=== PATIENT | female | born 1980 | race Caucasian/White ===

== ENCOUNTER 2018-03-30 15:58 | Emergency (ER) | payer MEDICAID, OTHER ==
[~2018-03-30] VITALS: Ht 170.2 cm; Wt 77.1 kg
[~2018-03-30 15:58] MED LIST: NITR-48; PRENCAP15
[2018-03-30 17:09] VITALS: BP 112/73
[2018-03-30] MEDS ORDERED: TETANUS-DIPTH-ACEL PERTUSSIS 0.5ML SYRG IM ONE (17:30)
== END 2018-03-30 17:44 | disposition home or self-care (01) ==
LOC: ER 16:03
DX: S81.841A Puncture wound with foreign body, right lower leg, initial encounter (principal); Z79.899 Other long term (current) drug therapy; Z98.51 Tubal ligation status; Y92.89 Other specified places as the place of occurrence of the external cause
CPT/HCPCS: 90471; 90715

== ENCOUNTER 2019-03-25 15:50 | Emergency (ER) | payer MEDICAID ==
[~2019-03-25] VITALS: Ht 167.6 cm; Wt 81.6 kg
[~2019-03-25 15:50] MED LIST changes: -NITR-48; +NITR100C44
[2019-03-25 16:39] LABS: Basophils # (auto) 0.1 uL; Basophils % (auto) 1.1 % (0.0-2.0); Eosinophils # (auto) 0.1 uL; Eosinophils % (auto) 1.9 % (0.0-7.0); Hematocrit 40.5 % (36.0-46.0); Hemoglobin 13.7 g/dL (12.2-16.2); Lymphocytes # (auto) 2.1 uL; Lymphocytes % (auto) 30.5 % (10.0-50.0); Mean Corpuscular Hemoglobin 31.2 pg (28.0-32.0); Mean Corpuscular Hgb Conc. 33.8 g/dL (32.0-36.0); Mean Corpuscular Volume 92.4 fL (80.0-100.0); Monocytes # (auto) 0.6 uL; Monocytes % (auto) 8.9 % (0.0-12.0); Neutrophils % (auto) 57.6 % (37.0-80.0); Nucleated Red Blood Cells % 0.1 %; Platelet Count (auto) 287 10^3/uL (140-450); Red Blood Cells 4.38 10^6/uL (4.0-5.20); Red Cell Distribution Width 13.2 % (11.8-14.3); White Blood Cell 6.9 10^3/uL (4.4-10.8)
[2019-03-25 16:50] LABS: Albumin 3.8 g/dL (3.4-5.0); BUN/Creatinine Ratio 15.7; Calcium 8.3 mg/dL (8.5-10.1); Potassium 3.7 mmol/L (3.5-5.1)
[2019-03-25 16:52] LABS: Bilirubin, Total 0.5 mg/dL (0.2-1.0); Total Protein 7.5 g/dL (6.4-8.2)
[2019-03-25 16:59] LABS: Urine Bacteria FEW /hpf (None Seen); Urine Blood Negative /uL (Negative); Urine Mucus FEW (None Seen); Urine Specific Gravity 1.027 (1.001-1.035); Urine WBC 1 /hpf (0 - 5)
[2019-03-25 19:21] VITALS: BP 128/81
== END 2019-03-25 19:25 | disposition home or self-care (01) ==
LOC: ER 15:53
DX: R42 Dizziness and giddiness (principal); R51 Headache; R11.2 Nausea with vomiting, unspecified; Z98.51 Tubal ligation status
CPT/HCPCS: 36415; 70450; 71046; 80053; 81001; 81025; 85025

== ENCOUNTER 2022-02-01 06:13 | Inpatient (IN) | payer MEDICAID ==
[2022-01-30 09:22] LABS: Basophils # (auto) 0.1 10 ^3/uL (0-0.2); Eosinophils # (auto) 0.1 10 ^3/uL (0-0.8); Eosinophils % (auto) 2.2 % (0.0-7.0); Hematocrit 38.7 % (36.0-46.0); Hemoglobin 13.2 g/dL (12.2-16.2); Lymphocytes # (auto) 1.6 10 ^3/uL (0.4-5.4); Mean Corpuscular Hemoglobin 30.9 pg (28.0-32.0); Mean Corpuscular Hgb Conc. 34.1 g/dL (32.0-36.0); Mean Corpuscular Volume 90.4 fL (80.0-100.0); Monocytes # (auto) 0.4 10 ^3/uL (0-1.3); Monocytes % (auto) 8.1 % (0.0-12.0); Neutrophils # (auto) 3.2 10 ^3/uL (1.6-8.6); Neutrophils % (auto) 58.7 % (37.0-80.0); Red Blood Cells 4.28 10^6/uL (4.0-5.20); Red Cell Distribution Width 13.4 % (11.8-14.3); White Blood Cell 5.4 10^3/uL (4.4-10.8)
[2022-01-30 09:41] LABS: Urine Bacteria FEW /hpf (None Seen); Urine Blood Negative /uL (Negative); Urine Specific Gravity 1.015 (1.001-1.035); Urine WBC 1 /hpf (0 - 5)
[2022-01-30 09:43] LABS: Albumin 3.7 g/dL (3.4-5.0); Potassium 3.9 mmol/L (3.5-5.1)
[2022-01-30 09:46] LABS: BUN/Creatinine Ratio 16.9; Bilirubin, Total 0.4 mg/dL (0.2-1.0); Total Protein 7.3 g/dL (6.4-8.2)
[2022-01-30 10:02] LABS: Partial Thromboplastin Time 26.9 sec (23.6-33.0)
[~2022-02-01] VITALS: Ht 170.2 cm; Wt 96.7 kg
[2022-02-01] MEDS ORDERED: ceFAZolin 1GM/50ML 100 ML IV ONE (06:37)
[2022-02-01] MEDS ORDERED: SUCCINYLCHOLINE CHLORIDE 20 MG/ML 10ML VIAL IV ONE (06:48)
[2022-02-01] MEDS ORDERED: ROCURONIUM 10MG/ML 10ML VIAL IV ONE (06:48)
[2022-02-01] MEDS ORDERED: NEOSTIGMINE 1 MG/ML INJ (10mg/10ML VIAL) ONE (07:06)
[2022-02-01] MEDS ORDERED: DexAMETHasone SOD PHOS 10MG/1ML VIAL INJ ONE (07:06)
[2022-02-01] MEDS ORDERED: MIDAZOLAM HCL 2MG/2ML 2ml VIAL (1mg/ml) ONE (07:06)
[2022-02-01] MEDS ORDERED: ONDANSETRON HCL 4 MG/2 ML VIAL ONE (07:06)
[2022-02-01] MEDS ORDERED: SODIUM CHLORIDE LOCK 10 ML ONE (07:06)
[2022-02-01] MEDS ORDERED: GLYCOPYRROLATE 0.2 MG/ML 1ML VIAL ONE (07:06)
[2022-02-01] MEDS ORDERED: fentaNYL CITRATE 100 MCG/2 ML VL ONE (07:06)
[2022-02-01] MEDS ORDERED: MORPHINE SULFATE 4 MG/ML SYR/VIAL IV PRN ×2 (07:30)
[2022-02-01] MEDS ORDERED: KETOROLAC TROMETH 30 MG/ML 1ML VIAL IV ONE (07:30)
[2022-02-01] MEDS ORDERED: fentaNYL CITRATE 100 MCG/2 ML VL IV PRN (07:30)
[2022-02-01] MEDS ORDERED: METOCLOPRAMIDE HCL 5MG/ml INJ 2ml VIAL IV PRN (07:30)
[2022-02-01] MEDS ORDERED: ONDANSETRON HCL 4 MG/2 ML VIAL IV PRN (07:30)
[2022-02-01] MEDS ORDERED: HYDROmorphone HCL 2 MG/ML VL IV PRN (07:30)
[2022-02-01] MEDS ORDERED: NITROGLYCERIN 0.4 MG SL TAB SL PRN (08:30)
[2022-02-01] MEDS ORDERED: MORPHINE SULFATE INJECTION 2 MG/ML SYRG IV PRN (08:30)
[2022-02-01] MEDS: BUPIVACAINE W/ EPINEPH 0.25% INJ 50ML MDV ONE ×2 (08:38→09:05)
[2022-02-01] MEDS ORDERED: MEPERIDINE HCL (25 MG/ML) 1ML VIAL ONE (08:41)
[2022-02-01] MEDS ORDERED: KETOROLAC TROMETH 30 MG/ML 1ML VIAL ONE (09:20)
[2022-02-01] MEDS ORDERED: ACETAMINOPHEN IV 100 ML IV ONE (09:44)
[2022-02-01] MEDS ORDERED: ACETAMINOPHEN IV 1000 MG/100ML (10MG/ML) IV ONE (09:45)
[2022-02-01] MEDS ORDERED: HYDROmorphone HCL 2 MG/ML VL ONE (10:27)
[2022-02-01] MEDS: HYDROmorphone HCL 2 MG/ML VL IV PRN ×4 (10:28→11:30)
[2022-02-01] MEDS ORDERED: ceFAZolin 1GM/50ML 50 ML IV SCH (15:00)
[2022-02-01 15:41] VITALS: BP 109/65
[2022-02-01] MEDS: ACETAMINOPHEN 500 MG TAB PO PRN ×2 (15:43→21:07)
[2022-02-01] MEDS: ONDANSETRON HCL 4 MG/2 ML VIAL IV PRN ×2 (15:43→21:07)
[2022-02-01 17:00] VITALS: BP 92/56
[2022-02-01] MEDS: LACTATED RINGER'S 1,000 ML IV SCH ×2 (17:44→20:50)
[2022-02-01 22:00] VITALS: BP 104/59
[2022-02-01 22:30] LABS: Basophils # (auto) 0 10 ^3/uL (0-0.2); Basophils % (auto) 0.1 % (0.0-2.0); Eosinophils # (auto) 0 10 ^3/uL (0-0.8); Hematocrit 37.7 % (36.0-46.0); Hemoglobin 12.8 g/dL (12.2-16.2); Lymphocytes # (auto) 0.6 10 ^3/uL (0.4-5.4); Lymphocytes % (auto) 6.3 % (10.0-50.0); Mean Corpuscular Hemoglobin 31.1 pg (28.0-32.0); Mean Corpuscular Volume 91.3 fL (80.0-100.0); Monocytes # (auto) 0.4 10 ^3/uL (0-1.3); Monocytes % (auto) 4.1 % (0.0-12.0); Neutrophils % (auto) 89.5 % (37.0-80.0); Nucleated Red Blood Cells % 0.1 %; Red Blood Cells 4.13 10^6/uL (4.0-5.20); Red Cell Distribution Width 13.6 % (11.8-14.3); White Blood Cell 10.1 10^3/uL (4.4-10.8)
[2022-02-02] MEDS ORDERED: BISACODYL 10 MG RECT SUPP PR PRN (02:00)
[2022-02-02] MEDS ORDERED: HYDROcodone-ACET 5/325MG TAB PO PRN (02:00)
[2022-02-02] MEDS: ceFAZolin 1GM/50ML 50 ML IV SCH ×3 (02:12→18:10)
[2022-02-02] MEDS: LACTATED RINGER'S 1,000 ML IV SCH ×4 (03:30→23:43)
[2022-02-02 05:00] VITALS: BP 106/58
[2022-02-02 05:58] LABS: Basophils # (auto) 0 10 ^3/uL (0-0.2); Basophils % (auto) 0.1 % (0.0-2.0); Eosinophils # (auto) 0 10 ^3/uL (0-0.8); Hemoglobin 12.4 g/dL (12.2-16.2); Lymphocytes # (auto) 0.9 10 ^3/uL (0.4-5.4); Mean Corpuscular Hemoglobin 31.1 pg (28.0-32.0); Mean Corpuscular Hgb Conc. 33.6 g/dL (32.0-36.0); Mean Corpuscular Volume 92.5 fL (80.0-100.0); Monocytes # (auto) 0.9 10 ^3/uL (0-1.3); Monocytes % (auto) 8.1 % (0.0-12.0); Neutrophils # (auto) 9.3 10 ^3/uL (1.6-8.6); Neutrophils % (auto) 83.8 % (37.0-80.0); Red Cell Distribution Width 13.4 % (11.8-14.3); White Blood Cell 11.1 10^3/uL (4.4-10.8)
[2022-02-02] MEDS: ACETAMINOPHEN 500 MG TAB PO PRN ×2 (05:59→12:56)
[2022-02-02 08:00] VITALS: BP 100/67
[2022-02-02] MEDS: DOCUSATE SOD 100 MG CAP PO SCH ×2 (09:41→21:35)
[2022-02-02] MEDS: IBUPROFEN 800 MG TAB PO PRN ×2 (10:37→17:49)
[2022-02-02] MEDS ORDERED: ONDA-144 PO (13:39)
[2022-02-02] MEDS ORDERED: IBUP800T27 PO (13:39)
[2022-02-02] MEDS ORDERED: DOCU-94 PO (13:39)
[2022-02-02] MEDS ORDERED: ACET30TA15 PO (13:59)
[2022-02-02 14:48] VITALS: BP 103/57
[2022-02-02 17:00] VITALS: BP 109/65
[2022-02-02 22:00] VITALS: BP 105/61
[2022-02-03] MEDS: ceFAZolin 1GM/50ML 50 ML IV SCH ×2 (01:57→09:41)
[2022-02-03] MEDS: IBUPROFEN 800 MG TAB PO PRN (04:56)
[2022-02-03 05:00] VITALS: BP 100/55
[2022-02-03] MEDS: LACTATED RINGER'S 1,000 ML IV SCH (05:26)
[2022-02-03 09:00] VITALS: BP 114/68
[2022-02-03] MEDS: DOCUSATE SOD 100 MG CAP PO SCH (09:41)
[2022-02-03] MEDS: ACETAMINOPHEN 500 MG TAB PO PRN (09:42)
[2022-02-03 12:02] VITALS: BP 114/68
[2022-02-03 13:00] VITALS: BP 98/52
== END 2022-02-03 13:36 | disposition home or self-care (01) | DRG 513 ==
LOC: SUR 06:13 → OVERFLOW 08:28 → EAST 15:26
PROVIDERS: ADMIT Obstetrics & Gynecology; ATTEND Obstetrics & Gynecology
PROC: 0UT90ZL Resection of Uterus, Supracervical, Open Approach (ICD-10-PCS; principal; 2022-02-01 08:25)
DX: N80.9 Endometriosis, unspecified (principal); K66.0 Peritoneal adhesions (postprocedural) (postinfection); Z98.51 Tubal ligation status; R10.2 Pelvic and perineal pain; Z20.822 Contact with and (suspected) exposure to COVID-19
CPT/HCPCS: 36415; 80053; 81001; 81025; 84702; 85025; 85610; 85730; 86850; 86900; 86901; G0378; J0131; J0330; J0690; J1100; J1885; J2250; J2405

== ENCOUNTER → 2023-01-30 | Outpatient (CLI) | payer MEDICAID ==
[~2023-01-30] MED LIST changes: +ACET30TA15 PO; +DOCU-94 PO; +IBUP800T27 PO; -NITR100C44; +ONDA-144 PO; -PRENCAP15
[2023-01-30 08:58] LABS: Basophils # (auto) 0.1 10 ^3/uL (0-0.2); Basophils % (auto) 0.8 % (0.0-2.0); Eosinophils # (auto) 0.1 10 ^3/uL (0-0.8); Eosinophils % (auto) 1.6 % (0.0-7.0); Hematocrit 41.2 % (36.0-46.0); Hemoglobin 14.1 g/dL (12.2-16.2); Lymphocytes # (auto) 1.8 10 ^3/uL (0.4-5.4); Lymphocytes % (auto) 25.4 % (10.0-50.0); Mean Corpuscular Hemoglobin 31.2 pg (28.0-32.0); Mean Corpuscular Hgb Conc. 34.2 g/dL (32.0-36.0); Mean Corpuscular Volume 91.2 fL (80.0-100.0); Monocytes # (auto) 0.6 10 ^3/uL (0-1.3); Monocytes % (auto) 8.9 % (0.0-12.0); Neutrophils # (auto) 4.5 10 ^3/uL (1.6-8.6); Neutrophils % (auto) 63.3 % (37.0-80.0); Nucleated Red Blood Cells % 0.1 %; Red Blood Cells 4.52 10^6/uL (4.0-5.20); Red Cell Distribution Width 13.3 % (11.8-14.3)
[2023-01-30 09:12] LABS: Urine Bacteria NONE SEEN /hpf (None Seen); Urine Blood Negative /uL (Negative); Urine Mucus FEW (None Seen); Urine Specific Gravity 1.022 (1.001-1.035); Urine WBC 4 /hpf (0 - 5)
[2023-01-30 13:43] LABS: Potassium 4.7 mmol/L (3.5-5.1)
[2023-01-30 14:35] LABS: Albumin 3.6 g/dL (3.4-5.0); BUN/Creatinine Ratio 15.1 (10.0-20.0); Bilirubin, Total 0.5 mg/dL (0.2-1.0); Calcium 8.8 mg/dL (8.5-10.1); Total Protein 7.3 g/dL (6.4-8.2)
== END | disposition home or self-care (01) ==
LOC: LAB 08:39
PROVIDERS: ATTEND Internal Medicine
DX: Z00.00 Encounter for general adult medical examination without abnormal findings (principal); Z80.0 Family history of malignant neoplasm of digestive organs; Z85.3 Personal history of malignant neoplasm of breast; Z79.899 Other long term (current) drug therapy
CPT/HCPCS: 36415; 80053; 80061; 81001; 83036; 84443; 85025

== ENCOUNTER → 2023-03-09 | Outpatient (CLI) | payer MEDICAID ==
[2023-03-09 16:12] LABS: Free T4 (Free Thyroxine) 0.98 ng/dL (0.89-1.76)
[2023-03-09 16:13] LABS: Free T3 3.27 pg/mL (2.3-4.2)
== END | disposition home or self-care (01) ==
LOC: LAB 15:17
PROVIDERS: ATTEND Internal Medicine
DX: R79.89 Other specified abnormal findings of blood chemistry (principal)
CPT/HCPCS: 36415; 84439; 84443; 84481

== ENCOUNTER → 2023-04-30 | Outpatient (CLI) | payer MEDICAID ==
[~2023-04-30] MED LIST changes: +IBUP-1456 PO; -IBUP800T27 PO
[2023-04-30 12:16] LABS: Free T4 (Free Thyroxine) 0.9 ng/dL (0.89-1.76)
[2023-04-30 12:17] LABS: Free T3 3.2 pg/mL (2.3-4.2)
== END | disposition home or self-care (01) ==
LOC: LAB 10:18
PROVIDERS: ATTEND Internal Medicine
DX: R79.89 Other specified abnormal findings of blood chemistry (principal)
CPT/HCPCS: 36415; 84439; 84443; 84481

== ENCOUNTER → 2023-05-16 | Outpatient (CLI) | payer MEDICAID | END | disposition home or self-care (01) | LOC: LAB 09:30 | PROVIDERS: ATTEND Internal Medicine | DX: N39.0 Urinary tract infection, site not specified (principal) | CPT/HCPCS: 87086 ==

== ENCOUNTER → 2023-06-12 | Outpatient (CLI) | payer MEDICAID ==
[2023-06-12 12:33] LABS: Urine Bacteria NONE SEEN /hpf (None Seen); Urine Blood TRACE /uL (Negative); Urine Clarity HAZY (Clear); Urine Color Yellow (Yellow); Urine Mucus FEW (None Seen); Urine Protein, UAD 1+ (Negative); Urine Specific Gravity 1.032 (1.001-1.035); Urine WBC 87 /hpf (0 - 5)
== END | disposition home or self-care (01) ==
LOC: LAB 11:12
PROVIDERS: ATTEND Internal Medicine
DX: N39.0 Urinary tract infection, site not specified (principal)
CPT/HCPCS: 81001; 87086

== ENCOUNTER 2024-02-20 07:10 | Inpatient (IN) | payer MEDICAID ==
[2024-02-18 11:27] LABS: Urine Bacteria None Seen /hpf (None Seen)
[2024-02-18 11:42] LABS: Basophils # (auto) 0.1 10 ^3/uL (0-0.2); Eosinophils # (auto) 0.1 10 ^3/uL (0-0.8); Eosinophils % (auto) 1.5 % (0.0-7.0); Hematocrit 40.7 % (36.0-46.0); Hemoglobin 13.6 g/dL (12.2-16.2); Lymphocytes # (auto) 1.5 10 ^3/uL (0.4-5.4); Lymphocytes % (auto) 23.2 % (10.0-50.0); Mean Corpuscular Hemoglobin 30.8 pg (28.0-32.0); Mean Corpuscular Hgb Conc. 33.5 g/dL (32.0-36.0); Monocytes # (auto) 0.6 10 ^3/uL (0-1.3); Monocytes % (auto) 8.5 % (0.0-12.0); Neutrophils # (auto) 4.4 10 ^3/uL (1.6-8.6); Neutrophils % (auto) 65.8 % (37.0-80.0); Nucleated Red Blood Cells % 0.1 %; Red Blood Cells 4.43 10^6/uL (4.0-5.20); Red Cell Distribution Width 13.4 % (11.8-14.3); White Blood Cell 6.7 10^3/uL (4.4-10.8)
[2024-02-18 11:44] LABS: Urine Blood Negative /uL (Negative); Urine Clarity Clear (Clear); Urine Color Light-Yellow (Yellow); Urine Protein, UAD Negative (Negative); Urine Specific Gravity 1.009 (1.001-1.035); Urine Urobilinogen Normal (Negative); Urine WBC 10 /hpf (0 - 5)
[2024-02-18 11:55] LABS: Partial Thromboplastin Time 24.6 SEC (24.5-34.5); Prothrombin Time 10.6 sec (9.3-11.8)
[2024-02-18 12:13] LABS: Alanine Aminotransferase 17 U/L (7-40); Alkaline Phosphatase 54 U/L (46-116); Anion Gap 10 (5-15); BUN/Creatinine Ratio 9.2 (10.0-20.0); Blood Urea Nitrogen 7 mg/dL (9-23); Calcium 9.4 mg/dL (8.5-10.1); Carbon Dioxide 22 mmol/L (20-30); Chloride 105 mmol/L (98-107); Glucose 92 mg/dL (74-106); Sodium 137 mmol/L (136-145)
[2024-02-18 12:14] LABS: Albumin 4.4 g/dL (3.2-4.8)
[2024-02-18 12:15] LABS: Aspartate Aminotransferase 13 U/L (13-40); Bilirubin, Total 0.5 mg/dL (0.2-1.0); Total Protein 7.2 g/dL (5.7-8.2)
[~2024-02-20] VITALS: Ht 170.2 cm; Wt 86.9 kg
[2024-02-20] MEDS: ceFAZolin 2 GM/D5W50ml 50 ML IV ONE (07:11)
[2024-02-20] MEDS: LIDOCAINE 2% JELLY 11ml (GLYDO) ONE (07:29)
[2024-02-20] MEDS: SUCCINYLCHOLINE CHLORIDE 20 MG/ML 10ML VIAL IV ONE (07:30)
[2024-02-20] MEDS ORDERED: fentaNYL CITRATE 100 MCG/2 ML VL ONE (07:56)
[2024-02-20] MEDS ORDERED: MIDAZOLAM HCL 2MG/2ML 2ml VIAL (1mg/ml) ONE (07:57)
[2024-02-20] MEDS ORDERED: MEPERIDINE HCL (50 MG/ML) 1 ML VIAL ONE (07:57)
[2024-02-20] MEDS ORDERED: ONDANSETRON HCL 4 MG/2 ML VIAL ONE (08:29)
[2024-02-20] MEDS ORDERED: ROCURONIUM 10MG/ML 10ML VIAL IV ONE (08:29)
[2024-02-20] MEDS ORDERED: DexAMETHasone SOD PHOS 10MG/1ML VIAL INJ ONE (08:29)
[2024-02-20] MEDS ORDERED: PROPOFOL 10 MG/ML 20 ML IV ONE (08:29)
[2024-02-20] MEDS ORDERED: SUGAMMADEX 200mg/2ml Vial (100MG/ML) IV ONE (08:30)
[2024-02-20] MEDS: LIDOCAINE 1%-Mpf/Epinephrine 1:200,000 30ml VIAL ONE (08:52)
[2024-02-20] MEDS: BUPIVACAINE 0.25% INJ 50ML VIAL ONE (08:52)
[2024-02-20 09:10] VITALS: PULSE 85; RESP 10; O2SAT 96
[2024-02-20] MEDS ORDERED: LABETALOL HCL 5 MG/ML 4ML SYRINGE IV PRN (09:15)
[2024-02-20] MEDS ORDERED: MORPHINE SULFATE 4 MG/ML SYR/VIAL IV PRN (09:15)
[2024-02-20] MEDS ORDERED: HYDROmorphone HCL 2 MG/ML VL/or syr IV PRN (09:15)
[2024-02-20] MEDS ORDERED: MIDAZOLAM HCL 2MG/2ML 2ml VIAL (1mg/ml) IV PRN (09:15)
[2024-02-20] MEDS ORDERED: ePHEDrine SULFATE 50 MG/ML AMP IV PRN (09:15)
[2024-02-20] MEDS ORDERED: ACETAMINOPHEN/CODEINE#3 (300/30mg) TAB PO PRN (09:15)
[2024-02-20] MEDS: D5W/SOD CHL 0.45%/KCL 20MEQ 1,000 ML IV SCH (11:13)
[2024-02-20 13:30] VITALS: BP 109/67; PULSE 69; RESP 14; TEMP 98.1; O2SAT 93
[2024-02-20] MEDS: ONDANSETRON HCL 4 MG/2 ML VIAL IV ONE (13:42)
[2024-02-20] MEDS: KETOROLAC TROMETH 30 MG/ML 1ML VIAL IV PRN (13:43)
[2024-02-20] MEDS ORDERED: ONDANSETRON HCL 4 MG/2 ML VIAL IV PRN (14:30)
[2024-02-20] MEDS: ceFAZolin 1GM/50ML 50 ML IV SCH (14:50)
[2024-02-20 15:21] VITALS: O2SAT 93
[2024-02-20] MEDS: metroNIDAZOLE 500MG/100ML 100 ML IV SCH (15:48)
[2024-02-20 17:00] VITALS: BP 113/57; PULSE 71; RESP 16; TEMP 98.1; O2SAT 91
[2024-02-20] MEDS: traMADol HCL 50 MG TAB PO PRN (17:28)
[2024-02-20 20:00] VITALS: PULSE 76; RESP 18; O2SAT 94
[2024-02-20 21:00] VITALS: BP 96/56; PULSE 71; RESP 18; TEMP 97.9; O2SAT 95
[2024-02-21 05:00] VITALS: BP 99/59; PULSE 59; RESP 16; TEMP 97.9; O2SAT 94
[2024-02-21 07:06] LABS: Basophils # (auto) 0 10 ^3/uL (0-0.2); Basophils % (auto) 0.2 % (0.0-2.0); Eosinophils # (auto) 0 10 ^3/uL (0-0.8); Hematocrit 37.6 % (36.0-46.0); Hemoglobin 12.3 g/dL (12.2-16.2); Lymphocytes # (auto) 0.9 10 ^3/uL (0.4-5.4); Lymphocytes % (auto) 6.7 % (10.0-50.0); Mean Corpuscular Hemoglobin 30.1 pg (28.0-32.0); Mean Corpuscular Hgb Conc. 32.8 g/dL (32.0-36.0); Monocytes % (auto) 7.1 % (0.0-12.0); Neutrophils # (auto) 12.1 10 ^3/uL (1.6-8.6); Nucleated Red Blood Cells % 0.1 %; Red Blood Cells 4.09 10^6/uL (4.0-5.20); Red Cell Distribution Width 13.4 % (11.8-14.3); White Blood Cell 14.1 10^3/uL (4.4-10.8)
[2024-02-21 07:40] LABS: Alanine Aminotransferase 19 U/L (7-40); Alkaline Phosphatase 48 U/L (46-116); Anion Gap 8 (5-15); Aspartate Aminotransferase 18 U/L (13-40); BUN/Creatinine Ratio 9.1 (10.0-20.0); Blood Urea Nitrogen 7 mg/dL (9-23); Calcium 8.6 mg/dL (8.5-10.1); Carbon Dioxide 22 mmol/L (20-30); Chloride 108 mmol/L (98-107); Glucose 124 mg/dL (74-106); Potassium 4.2 mmol/L (3.5-5.1); Sodium 138 mmol/L (136-145)
[2024-02-21 07:41] LABS: Albumin 3.6 g/dL (3.2-4.8); Bilirubin, Total 0.4 mg/dL (0.2-1.0)
[2024-02-21 08:00] VITALS: PULSE 74; RESP 18; O2SAT 98
[2024-02-21 09:00] VITALS: BP 111/61; PULSE 74; RESP 18; TEMP 98.1; O2SAT 98
[2024-02-21] MEDS ORDERED: IBUP-1456 PO (12:06)
[2024-02-21] MEDS ORDERED: ACET300T58 PO (12:06)
[2024-02-21] MEDS ORDERED: METR-344 PO (12:06)
[2024-02-21] MEDS ORDERED: ZOFR4T PO (12:06)
[2024-02-21 13:00] VITALS: BP 107/59; PULSE 84; RESP 14; TEMP 98.2; O2SAT 98
[2024-02-21 15:27] VITALS: BP 107/59; PULSE 84; RESP 14; TEMP 98.2; O2SAT 96
== END 2024-02-21 16:15 | disposition home or self-care (01) | DRG 263 ==
LOC: SUR 07:10 → OVERFLOW 12:56 → WEST WING 13:20
PROVIDERS: ADMIT Internal Medicine; ATTEND Internal Medicine
PROC: 0FT44ZZ Resection of Gallbladder, Percutaneous Endoscopic Approach (ICD-10-PCS; principal; 2024-02-20 08:03)
DX: K80.64 Calculus of gallbladder and bile duct with chronic cholecystitis without obstruction (principal); E66.01 Morbid (severe) obesity due to excess calories; N39.0 Urinary tract infection, site not specified; Z88.8 Allergy status to other drugs, medicaments and biological substances; Z79.899 Other long term (current) drug therapy; Z90.710 Acquired absence of both cervix and uterus; Z68.30 Body mass index [BMI] 30.0-30.9, adult
CPT/HCPCS: 36415; 80053; 81001; 84702; 85025; 85610; 85730; 86850; 86900; 86901; G0378; J0330; J1100; J1885; J2250; J2405; J2704; J3490

== ENCOUNTER → 2024-02-29 | Outpatient (CLI) | payer MEDICAID ==
[~2024-02-29] MED LIST changes: +ACET300T58 PO; -ACET30TA15 PO; -DOCU-94 PO; +METR-344 PO; -ONDA-144 PO; +ZOFR4T PO
[2024-02-29 08:23] LABS: Urine Bacteria None Seen /hpf (None Seen)
[2024-02-29 08:35] LABS: Basophils # (auto) 0.1 10 ^3/uL (0-0.2); Basophils % (auto) 0.9 % (0.0-2.0); Eosinophils # (auto) 0.5 10 ^3/uL (0-0.8); Hematocrit 43.1 % (36.0-46.0); Hemoglobin 14.5 g/dL (12.2-16.2); Lymphocytes # (auto) 1.9 10 ^3/uL (0.4-5.4); Mean Corpuscular Hgb Conc. 33.6 g/dL (32.0-36.0); Mean Corpuscular Volume 92.1 fL (80.0-100.0); Monocytes # (auto) 0.6 10 ^3/uL (0-1.3); Monocytes % (auto) 8.1 % (0.0-12.0); Neutrophils # (auto) 4.6 10 ^3/uL (1.6-8.6); Nucleated Red Blood Cells % 0.1 %; Red Blood Cells 4.68 10^6/uL (4.0-5.20); Red Cell Distribution Width 13.2 % (11.8-14.3); White Blood Cell 7.6 10^3/uL (4.4-10.8)
[2024-02-29 08:45] LABS: Urine Blood Negative /uL (Negative); Urine Clarity Clear (Clear); Urine Color Yellow (Yellow); Urine Mucus FEW (None Seen); Urine Protein, UAD TRACE (Negative); Urine Specific Gravity 1.024 (1.001-1.035); Urine Urobilinogen 2 mg/dL (Negative); Urine WBC 2 /hpf (0 - 5); Urine pH 5.5 (5.0-9.0)
[2024-02-29 09:07] LABS: Alanine Aminotransferase 45 U/L (7-40); Alkaline Phosphatase 56 U/L (46-116); Amylase 65 U/L (30-118); Anion Gap 8 (5-15); BUN/Creatinine Ratio 11.4 (10.0-20.0); Blood Urea Nitrogen 10 mg/dL (9-23); Carbon Dioxide 22 mmol/L (20-30); Chloride 105 mmol/L (98-107); Glucose 133 mg/dL (74-106); Lipase 45 U/L (12-53); Potassium 4.1 mmol/L (3.5-5.1); Sodium 135 mmol/L (136-145)
[2024-02-29 09:08] LABS: Albumin 4.3 g/dL (3.2-4.8); Aspartate Aminotransferase 23 U/L (13-40); Bilirubin, Total 0.7 mg/dL (0.2-1.0); Total Protein 7.5 g/dL (5.7-8.2)
== END | disposition home or self-care (01) ==
LOC: LAB 08:07
PROVIDERS: ATTEND Internal Medicine
DX: N39.0 Urinary tract infection, site not specified (principal); R10.9 Unspecified abdominal pain
CPT/HCPCS: 36415; 80053; 81001; 82150; 83690; 85025; 87086

== ENCOUNTER → 2024-04-07 | Outpatient (CLI) | payer MEDICAID ==
[2024-04-07 11:12] LABS: Alanine Aminotransferase 15 U/L (7-40); Alkaline Phosphatase 60 U/L (46-116)
[2024-04-07 11:13] LABS: Albumin 4.3 g/dL (3.2-4.8); Aspartate Aminotransferase < 8 U/L (13-40); Bilirubin, Direct 0.3 mg/dL (<0.3); Bilirubin, Total 0.6 mg/dL (0.2-1.0); Total Protein 6.9 g/dL (5.7-8.2)
== END | disposition home or self-care (01) ==
LOC: LAB 10:06
PROVIDERS: ATTEND Internal Medicine
DX: R79.89 Other specified abnormal findings of blood chemistry (principal)
CPT/HCPCS: 36415; 80076